=== PATIENT | female | born 1995 | race Two or more races ===

== ENCOUNTER 2016-04-23 12:35 | Outpatient (CLI) | payer SELFPAY ==
[~2016-04-23] VITALS: Ht 165.1 cm; Wt 72.0 kg
[2016-04-23] MEDS ORDERED: PRENTAB55 PO (12:57)
== END 2016-04-23 15:15 | disposition home or self-care (01) ==
LOC: M LDO 12:35
PROVIDERS: ATTEND Specialist
DX: O47.02 False labor before 37 completed weeks of gestation, second trimester (principal); Z3A.34 34 weeks gestation of pregnancy

== ENCOUNTER 2016-04-26 17:08 | Outpatient (CLI) | payer OTHER, SELFPAY ==
[~2016-04-26 17:08] MED LIST: PRENTAB55 PO
[2016-04-26 17:19] VITALS: BP 121/68
[2016-04-26 18:11] VITALS: BP 117/68
[2016-04-26 19:18] VITALS: BP 112/60
[2016-04-26] MEDS ORDERED: NITR100C37 PO (20:51)
[2016-04-26] MEDS ORDERED: NITROFURANTOIN (MACROBID) 100 MG CAP PO ONE (21:00)
== END 2016-04-26 21:10 | disposition home or self-care (01) ==
LOC: M LDO 17:08
PROVIDERS: ATTEND Obstetrics & Gynecology
DX: O26.893 Other specified pregnancy related conditions, third trimester (principal); Z3A.34 34 weeks gestation of pregnancy; O23.13 Infections of bladder in pregnancy, third trimester